=== PATIENT | male | born 1975 | race African-American/Black ===

== ENCOUNTER 2022-09-07 09:06 | Emergency (ER) | payer OTHER, SELFPAY ==
[2022-09-07] MEDS ORDERED: Meclizine HCl 25 MG TAB ONE (10:52)
== END 2022-09-07 12:05 | disposition home or self-care (01) ==
LOC: ERS 09:06
DX: R42 Dizziness and giddiness (principal); F17.210 Nicotine dependence, cigarettes, uncomplicated
CPT/HCPCS: 99283

== ENCOUNTER 2022-12-29 15:05 | Emergency (ER) | payer SELFPAY | END 2022-12-29 16:22 | disposition home or self-care (01) | LOC: ERS 15:05 | DX: K04.7 Periapical abscess without sinus (principal); L72.3 Sebaceous cyst; F17.290 Nicotine dependence, other tobacco product, uncomplicated | CPT/HCPCS: 99283 ==